=== PATIENT | female | born 1935 | race Caucasian/White ===

== ENCOUNTER 2017-04-17 16:45 | Emergency (ER) | payer MEDICARE, OTHER ==
[~2017-04-17] VITALS: Wt 85.0 kg
[2017-04-17] MEDS ORDERED: SOD CHLORIDE 0.9% 1,000 ML IV STA (17:22)
[2017-04-17] MEDS ORDERED: KETOROLAC 15 MG INJ IV STA (17:22)
[2017-04-17] MEDS ORDERED: ONDANSETRON 4 MG INJ IV STA ×2 (17:22→20:48)
[2017-04-17] MEDS ORDERED: FAMOTIDINE 20 MG TAB PO STA (17:22)
--- NOTE | 2017-04-17 17:57 | ERD ---
ER Documentation Chief Complaint Date/Time DATE: 04/17/17 TIME: 17:55 Chief Complaint ABD PAIN AND N/V X 1 MONTH HPI 81-year-old woman here for nausea and diffuse abdominal pain and cramping 1 month. Patient also complains of nausea. She has had no workup for this but does have a gastroenterology appointment scheduled for tomorrow. She has had no weight loss, no fevers or chills, no vomiting or diarrhea, no complaints of chest pain or shortness of breath. ROS All systems reviewed and are negative except as per history of present illness. Medications Home Meds Active Scripts Ibuprofen* (Motrin*) 400 Mg Tab, 400 MG PO Q8 for PAIN AND/OR INFLAMMATION, #30 TAB Prov:EUGENIE FARAH MD 04/17/17 Allergies Allergies: Coded Allergies: No Known Allergy (Unverified , 04/17/17) PMhx/Soc Smoking Status: Never smoker FmHx Family History: No diabetes Physical Exam Vitals Vital Signs Date Time Temp Pulse Resp B/P Pulse Ox O2 Delivery O2 Flow Rate FiO2 04/17/17 20:23 64 17 160/77 100 Room Air 04/17/17 16:49 98.0 77 18 148/77 99 Physical Exam GENERAL: Well-developed, well-nourished, well-hydrated, in no apparent distress , looks nontoxic in appearance HEENT: Moist mucous membranes, pink conjunctiva, no cervical spine tenderness or step-off deformities, no goiter, no jaundice or icterus, extraocular movements intact without pain. No submandibular induration, and no pharyngeal erythema NEURO: Alert and oriented 3, cranial nerves II through XII intact bilaterally, pupils equal round reactive to light, no focal deficits or facial asymmetry, sensation intact distally Strength 5/5 in upper and lower extremities bilaterally CARDIAC: Regular rate and rhythm, no murmurs rubs or gallops LUNGS: Clear bilaterally no wheezing crackles or stridor ABDOMEN: Soft nontender, no guarding, no rigidity, no rebound, no psoas sign no obturator sign. Normoactive bowel sounds SKIN: Warm and dry to touch, no abrasions, contusions, or hematomas, no lacerations, no ecchymosis, no target lesions, and without ulcers EXTREMITIES: No clubbing cyanosis or edema, calves are bilaterally symmetrical, no Homans sign, no popliteal cord sign. Distal pulses equal and bilateral PSYCH: Normal affect without agitation or irritability Result Diagram: 04/17/17 1800 04/17/17 1800 Results 24 hrs Laboratory Tests Test 04/17/17 18:00 04/17/17 18:05 White Blood Count 7.210^3/ul Red Blood Count 4.8410^6/ul Hemoglobin 13.3g/dl Hematocrit 41.9% Mean Corpuscular Volume 86.6fl Mean Corpuscular Hemoglobin 27.5pg Mean Corpuscular Hemoglobin Concent 31.7g/dl Red Cell Distribution Width 14.4% Platelet Count 21333^3/UL Mean Platelet Volume 9.6fl Neutrophils % 44.8% Lymphocytes % 41.6% Monocytes % 8.4% Eosinophils % 3.8% Basophils % 1.3% Nucleated Red Blood Cells % 0.0/100WBC Neutrophils # 3.210^3/ul Lymphocytes # 3.010^3/ul Monocytes # 0.610^3/ul Eosinophils # 0.310^3/ul Basophils # 0.110^3/ul Nucleated Red Blood Cells # 0.010^3/ul Sodium Level 142mmol/L Potassium Level 3.5mmol/L Chloride Level 108mmol/L Carbon Dioxide Level 25mmol/L Anion Gap 13 Blood Urea Nitrogen 13mg/dl Creatinine 1.15mg/dl Glucose Level 109mg/dl Calcium Level 9.4mg/dl Total Bilirubin 0.4mg/dl Direct Bilirubin 0.00mg/dl Indirect Bilirubin 0.4mg/dl Aspartate Amino Transf (AST/SGOT) 32IU/L Alanine Aminotransferase (ALT/SGPT) 41IU/L Alkaline Phosphatase 65IU/L Troponin I < 0.012ng/ml Total Protein 7.3g/dl Albumin 4.4g/dl Globulin 2.90g/dl Albumin/Globulin Ratio 1.51 Lipase 178U/L Urine Color YELLOW Urine Clarity SLIGHTLY CLOUDY Urine pH 7.0 Urine Specific [place] 1.009 Urine Ketones NEGATIVEmg/dL Urine Nitrite NEGATIVEmg/dL Urine Bilirubin NEGATIVEmg/dL Urine Urobilinogen NEGATIVEmg/dL Urine Leukocyte Esterase NEGATIVELeu/ul Urine Microscopic RBC 0/HPF Urine Microscopic WBC 1/HPF Urine Amorphous Crystals FEW/HPF Urine Hemoglobin NEGATIVEmg/dL Urine Glucose NEGATIVEmg/dL Urine Total Protein NEGATIVEmg/dl Current Medications Medications (Trade) Dose Ordered Sig/[place] Route PRN Reason Start Time Stop Time Status Last Admin Dose Admin Sodium Chloride (NS) 1,000 ml @ 1,000 mls/hr Q1H STAT IV 04/17/17 17:22 04/17/17 18:21 DC 04/17/17 18:02 Ondansetron HCl (Zofran Inj) 4 mg ONCE STAT IV 04/17/17 17:22 04/17/17 17:24 DC 04/17/17 17:58 Famotidine (Pepcid) 40 mg ONCE STAT PO 04/17/17 17:22 04/17/17 17:24 DC 04/17/17 17:58 Ketorolac Tromethamine (Toradol) 15 mg ONCE STAT IV 04/17/17 17:22 04/17/17 17:24 DC 04/17/17 17:58 Ondansetron HCl (Zofran Inj) 4 mg ONCE STAT IV 04/17/17 20:48 04/17/17 20:49 DC 04/17/17 20:53 Procedures/MDM IV line was established patient was placed on clinical research monitor rhythm strip revealed a sinus rhythm at about 70 bpm with upright P and T waves. Patient was afebrile. EKG performed, read by me: 74 bpm, normal sinus rhythm, normal axis, no acute ST segment changes, narrow QRS complex, with good R-wave progression in precordial leads. 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 I do not suspect these are the cause of her symptoms. Her abdominal pain is more anterior colicky, and diffuse. Please refer to radiologist dictation for full report. CBC and electrolytes were normal, liver function tests were normal, troponin was negative. Urine analysis was negative for infection. She was given 1 L normal saline intravenously, Toradol 15 mg IV, Zofran 4 mg IV , and famotidine 40 mg p.o. Vision symptoms did improve. Patient has follow-up appointment with her associate java developer tomorrow at 4 PM. She was given a copy of her CT scan report and lab results. Further management including outpatient prescriptions and imaging studies deferred to her associate java developer. Differential diagnoses considered, included but not limited to acute coronary syndrome, pulmonary embolism, aortic dissection, abdominal aortic aneurysm, sepsis, stroke, meningitis, encephalitis, pneumonia, appendicitis, cholecystitis , bowel obstruction, pyelonephritis, nephrolithiasis, cystitis, as well as metabolic, hematologic, and electrolyte abnormalities. As well as abscess, cellulitis, fractures, and dislocations. Patient feels much better at this time, and vital signs are normal, symptoms have improved. I did give strict instructions to return to the ED if symptoms continue or worsen, patient will otherwise follow-up with primary care physician. Patient understood instructions and agreed to plan. Disclaimer: Inadvertent spelling and grammatical errors are likely due to EHR/ dictation software use and do not reflect on the overall quality of patient care. Also, please note that the electronic time recorded on this note does not necessarily reflect the actual time of the patient encounter. Departure Diagnosis: Primary Impression: Abdominal pain Abdominal location: generalized Qualified Code: R10.84 - Generalized abdominal pain Condition: Good EUGENIE FARAH MD Apr 17, 2017 17:57
[2017-04-17 18:08] LABS: BASOPHIL # 0.1 10^3/ul (0.0-0.1); BASOPHILS % 1.3 % (0.0-2.0); EOSINOPHILS # 0.3 10^3/ul (0.0-0.5); EOSINOPHILS % 3.8 % (0.0-7.0); HEMATOCRIT 41.9 % (37.0-47.0); HEMOGLOBIN 13.3 g/dl (12.0-16.0); LYMPHOCYTES % 41.6 % (15.0-51.0); MEAN CORPUSCULAR HEMOGLOBIN 27.5 pg (29.0-33.0); MEAN CORPUSCULAR HGB CONC 31.7 g/dl (32.0-37.0); MEAN CORPUSCULAR VOLUME 86.6 fl (82.0-101.0); MEAN PLATELET VOLUME 9.6 fl (7.4-10.4); MONOCYTE # 0.6 10^3/ul (0.3-0.9); MONOCYTES % 8.4 % (0.0-11.0); NEUTROPHIL # 3.2 10^3/ul (1.6-7.5); NEUTROPHILS % 44.8 % (39.0-77.0); PLATELET COUNT 266 10^3/UL (140-415); RED BLOOD COUNT 4.84 10^6/ul (4.20-5.40); RED CELL DISTRIBUTION WIDTH 14.4 % (11.5-14.5); WHITE BLOOD COUNT 7.2 10^3/ul (4.8-10.8)
[2017-04-17 18:27] LABS: ADD UMIC NO; UR AMORPHOUS CRYSTAL FEW /HPF (NONE SEEN); UR ASCORBIC ACID NEGATIVE (NEGATIVE); UR BILIRUBIN (Dip) NEGATIVE (NEGATIVE); UR BLOOD (Dip) NEGATIVE (NEGATIVE); UR CLARITY SLIGHTLY CLOUDY (CLEAR); UR COLOR YELLOW (YELLOW); UR GLUCOSE (Dip) NEGATIVE (NEGATIVE); UR KETONES (Dip) NEGATIVE (NEGATIVE); UR LEUKOCYTE ESTERASE (Dip) NEGATIVE Leu/ul (NEGATIVE); UR NITRITE (Dip) NEGATIVE (NEGATIVE); UR RBC 0 /HPF (0-5); UR SPECIFIC GRAVITY (Dip) 1.009 (1.003-1.030); UR TOTAL PROTEIN (Dip) NEGATIVE (NEGATIVE); UR UROBILINOGEN (Dip) NEGATIVE (NEGATIVE)
[2017-04-17 18:32] LABS: ALANINE AMINOTRANSFERASE 41 IU/L (13-69); ALBUMIN 4.4 g/dl (3.3-4.9); ALBUMIN/GLOBULIN RATIO 1.51; ALKALINE PHOSPHATASE 65 IU/L (42-121); ANION GAP 13 (8-16); ASPARTATE AMINO TRANSFERASE 32 IU/L (15-46); BILIRUBIN,INDIRECT 0.4 mg/dl (0-1.1); BILIRUBIN,TOTAL 0.4 mg/dl (0.2-1.3); BLOOD UREA NITROGEN 13 mg/dl (7-20); CALCIUM 9.4 mg/dl (8.4-10.2); CARBON DIOXIDE 25 mmol/L (21-31); CHLORIDE 108 mmol/L (97-110); CREATININE 1.15 mg/dl (0.44-1.00); GLUCOSE 109 mg/dl (70-220); POTASSIUM 3.5 mmol/L (3.5-5.1); SODIUM 142 mmol/L (135-144); TOTAL PROTEIN 7.3 g/dl (6.1-8.1)
[2017-04-17 18:41] LABS: TROPONIN-I < 0.012 ng/ml (0.00-0.12)
[2017-04-17 20:23] VITALS: BP 160/77; PULSE 64; RESP 17
--- NOTE | 2017-04-17 20:24 | RADRPT ---
PROCEDURE: CT ABDOMEN AND PELVIS WITHOUT CONTRAST: CLINICAL INDICATION: 81 years of age, female , abdominal pain. COMPARISON: None TECHNIQUE: CT of the abdomen, and pelvis was performed without intravenous contrast. Oral contrast w as not administered prior to the examination. Coronal and sagittal reformatted images were obtained from the axial source images. Images were revi ewed on a high-resolution PACS workstation. Dose information: Based on a 32 cm phantom, the estimated radiation dose (CTDI vol mGy) for each ser ies in this exam is 13.9 . The estimated cumulative dose (DLP mGy-cm) is 743 . FINDINGS: In the absence of intravenous contrast, the study constitutes a limited assessment of the solid orga ns and vessels. LUNG BASES: Coronary artery calcification. ABDOMEN/PELVIS: Liver: Normal. Gallbladder: Status post cholecystectomy Bile ducts: No intrahepatic or extrahepatic biliary duct dilatation. Spleen: Normal. Pancreas: Normal. Adrenal glands: Normal. Kidneys and ureters: Punctate nonobstructing calculus left kidney. 2.7 cm exophytic hypodensity sup erior pole left kidney likely represents a cyst. Negative for ureteral calculi or hydronephrosis. Right kidney is unremarkable. Aorta and IVC: Atherosclerosis aorta. Negative for abdominal aortic aneurysm. There is a 1.6 cm fus iform aneurysm of the celiac trunk (3/42). Lymph nodes: Normal. Gastrointestinal tract: Colonic diverticulosis without diverticulitis. Bowel loops are decompressed . Appendix: Not identified Bladder: Trace gas in urinary bladder is likely from recent catheterization. Pelvic Organs: The uterus and ovaries are not identified. Peritoneal cavity: No free fluid or free intraperitoneal air. Abdominal wall: Small fat containing abdominal wall hernias at and above the umbilicus. BONES: Musculoskeletal: Degenerative changes in spine and hips with curvature of the lumbar spine convex ri ght No suspicious bone lesions. IMPRESSION: Nonobstructing calculus left kidney. Negative for ureteral calculi or hydronephrosis. Colonic diverticulosis without diverticulitis. 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 Please note the patency of the vasculature canno t be evaluated without intravenous contrast. RPTAT: HCTS August Cardoso Physician Date Time Electronically viewed and signed by August Cardoso, Physician on 04/17/2017 20:24 CS/
[2017-04-17] MEDS ORDERED: IBUP400T22 PO (20:30)
== END 2017-04-17 21:02 | disposition home or self-care (01) ==
LOC: E/R 16:45
DX: R10.84 Generalized abdominal pain (principal); R11.0 Nausea
CPT/HCPCS: 36415; 74176; 80053; 81001; 83690; 84484; 85025; 93005; 96374; 96375; 96376; 99285; J1885; J2405; J7030; 81003

== ENCOUNTER 2018-06-04 01:03 | Observation (INO) | END 2018-06-06 19:44 | disposition home or self-care (01) ==

== ENCOUNTER 2019-02-14 20:58 | Emergency (ER) | payer MEDICARE, OTHER ==
[~2019-02-14] VITALS: Ht 152.4 cm; Wt 81.1 kg
[2019-02-14 21:05] VITALS: Ht 152.4 cm; Wt 81.1 kg
[2019-02-14] MEDS ORDERED: SOD CHLORIDE 0.9% 500 ML IV STA (22:58)
[2019-02-14] MEDS ORDERED: ALBUTEROL 0.083% (NEB) 2.5 MG/3 ML AMP HHN STA (22:58)
[2019-02-14] MEDS ORDERED: IPRATROPIUM (NEB) 0.5 MG/2.5 ML AMP INH ONE (23:00)
--- NOTE | 2019-02-15 | ERD ---
ER Documentation Chief Complaint Chief Complaint ST, COUGH, CONGESTION X'S 3 DAYS. HX PNA HPI 83-year-old female sore throat cough just for 3 days. Consummately productive. No fevers no chills. No nausea no vomiting no other current complaints. No sick contacts. No recent travel. No chest pain. ROS All systems reviewed and are negative except as per history of present illness. Medications Home Meds No Active Prescriptions or Reported Meds Allergies Allergies: Coded Allergies: No Known Allergy (Unverified , 04/17/17) PMhx/Soc History of Surgery: Yes (gallbladder surgery, appendectomy, hysterectomy, abdominal surgery for adhe) Anesthesia Reaction: No Hx Neurological Disorder: No Hx Respiratory Disorders: Yes (asthma) Hx Cardiac Disorders: Yes (atrial fibrillation, s/p ablation - a few days ago) Hx Psychiatric Problems: No Hx Miscellaneous Medical Probl: Yes (hypercholesterolemia) Hx Alcohol Use: No Hx Substance Use: No Hx Tobacco Use: No Smoking Status: Never smoker Physical Exam Vitals Vital Signs Date Temp Pulse Resp B/P (MAP) Pulse Ox O2 O2 Flow FiO2 Time Delivery Rate 02/14/19 89 22 152/84 100 Room Air 23:20 (106) 02/14/19 66 16 98 21 23:19 02/14/19 100.1 74 20 164/74 94 21:05 (104) Physical Exam Const: No acute distress Head: Atraumatic Eyes: Normal Conjunctiva ENT: Normal External Ears, Nose and Mouth. Neck: Full range of motion. No meningismus. Resp: Crackles in both lung bases Cardio: Regular rate and rhythm, no murmurs Abd: Soft, non tender, non distended. Normal bowel sounds Skin: No petechiae or rashes Back: No midline or flank tenderness Ext: No cyanosis, or edema Neur: Awake and alert Psych: Normal Mood and Affect Result Diagram: 02/14/19224902/14/192249 Results 24 hrs Laboratory Tests Test 02/14/19 22:50 02/14/19 23:08 White Blood Count 9.1 10^3/ul Red Blood Count 4.44 10^6/ul Hemoglobin 12.5 g/dl Hematocrit 38.8 % Mean Corpuscular Volume 87.4 fl Mean Corpuscular Hemoglobin 28.2 pg Mean Corpuscular Hemoglobin Concent 32.2 g/dl Red Cell Distribution Width 14.2 % Platelet Count 295 10^3/UL Mean Platelet Volume 9.4 fl Immature Granulocytes % 0.300 % Neutrophils % 68.9 % Lymphocytes % 19.3 % Monocytes % 8.5 % Eosinophils % 2.1 % Basophils % 0.9 % Nucleated Red Blood Cells % 0.0 /100WBC Immature Granulocytes # 0.030 10^3/ul Neutrophils # 6.3 10^3/ul Lymphocytes # 1.8 10^3/ul Monocytes # 0.8 10^3/ul Eosinophils # 0.2 10^3/ul Basophils # 0.1 10^3/ul Nucleated Red Blood Cells # 0.0 10^3/ul Sodium Level 142 mmol/L Potassium Level 4.4 mmol/L Chloride Level 111 mmol/L Carbon Dioxide Level 22 mmol/L Anion Gap 9 Blood Urea Nitrogen 9 mg/dl Creatinine 1.01 mg/dl Est Glomerular Filtrat Rate mL/min mL/min Glucose Level 125 mg/dl Calcium Level 9.1 mg/dl Total Bilirubin 0.7 mg/dl Direct Bilirubin 0.00 mg/dl Indirect Bilirubin 0.7 mg/dl Aspartate Amino Transf (AST/SGOT) 34 IU/L Alanine Aminotransferase (ALT/SGPT) 13 IU/L Alkaline Phosphatase 87 IU/L Troponin I < 0.012 ng/ml B-Type Natriuretic Peptide 203 PG/ML Total Protein 7.7 g/dl Albumin 4.4 g/dl Globulin 3.30 g/dl Albumin/Globulin Ratio 1.33 POC Venous Lactate 0.8 mmol/L Current Medications Medications Dose Sig/Corby Start Time Status Last (Trade) Ordered Route PRN Stop Time Admin Dose Reason Admin Sodium 500 ml @ Q1H STAT 02/14/19 02/14/19 Chloride 500 mls/hr IV 22:58 23:02 02/14/19 23:57 Albuterol 5 mg ONCE STAT 02/14/19 DC 02/14/19 (Proventil HHN 22:58 23:19 0.083% (Neb)) 02/14/19 22:59 Ipratropium 0.5 mg ONCE ONCE 02/14/19 DC 02/14/19 [place] [facility] 23:00 23:19 (Atrovent 02/14/19 23:01 0.02% (Neb)) Procedures/MDM EKG: Rate/Rhythm: [Normal Sinus Rhythm] QRS, ST, T-waves: [No changes consistent w/ acute ischemia] Impression: [No evidence of ischemia or arrhythmia] Chest X-ray 1V Interpreted by me: Soft Tissue: No acute abnormalities Bones: No acute abnormalities Mediastinum/Cardiac Silhouette/Lungs: [No acute abnormalities] Medical decision making: Patient's respiratory status has stabilized while in the department and is appropriate for outpatient work up. Exam and work up not consistent w/ impending respiratory failure or cardiovascular collapse. Departure Diagnosis: Primary Impression: Bronchitis Condition: Stable SHANICE MILLER Feb 15, 2019 00:00
[2019-02-15] MEDS ORDERED: AZIT250T PO (00:01)
[2019-02-15] MEDS ORDERED: PRED20TA PO (00:01)
[2019-02-15] MEDS ORDERED: ALBU18HF INHALATION (00:01)
[2019-02-15 00:41] VITALS: BP 142/75; PULSE 76; RESP 23
== END 2019-02-15 00:44 | disposition home or self-care (01) ==
LOC: E/R 20:58
DX: J40 Bronchitis, not specified as acute or chronic (principal)
CPT/HCPCS: 36415; 71045; 80053; 83605; 83880; 84484; 85025; 87040; 94664; 99284; J7040

== ENCOUNTER 2019-02-24 16:27 | Emergency (ER) | payer MEDICARE, OTHER ==
[~2019-02-24] VITALS: Ht 152.4 cm; Wt 81.0 kg
[~2019-02-24 16:27] MED LIST: ALBU18HF INHALATION; AZIT250T PO; PRED20TA PO
[2019-02-24 16:29] VITALS: Ht 152.4 cm; Wt 81.0 kg
--- NOTE | 2019-02-24 17:37 | ERD ---
ER Documentation Chief Complaint Chief Complaint COUGH , CHEST CONGESTION , SOB X 8 DAYS HPI This is a 83-year-old woman brought in by EMS for complaints of continued shortness of breath, cough, and chest congestion. She has been using albuterol pump at home without much relief and daughter who is at the bedside feels that she needs an albuterol nebulizer machine. She has had no fevers or chills, no complaints of wheezing, no chest pain, no loss of consciousness, no headache or blurry vision. Patient does have an appointment with her PMD next week. Patient has chronic peripheral edema and suffers from chronic orthopnea and exertional dyspnea. She was diagnosed with bronchitis last week and completed her course of azithromycin and continues to use her albuterol pump almost daily. ROS All systems reviewed and are negative except as per history of present illness. Medications Home Meds Active Scripts Mupirocin* (Bactroban*) 2% -22 Gram Oint...g., 1 APPLIC TOP BID for 14 Days, EA Prov:EUGENIE FARAH MD 02/24/19 Albuterol Sulfate* (Proair HFA*) 8.5 Gm Hfa.aer.ad, 2 PUFF INH Q6H PRN for WHEEZING AND SOB, #1 INHALER Prov:EUGENIE FARAH MD 02/24/19 Albuterol Sulfate* (Ventolin HFA*) 18 Gm Hfa.aer.ad, 2 PUFF INHALATION Q4H, #1 INHALER Prov:SHANICE MILLER 02/15/19 Prednisone* (Prednisone*) 20 Mg Tab, 40 MG PO DAILY for 4 Days, TAB Prov:SHANICE MILLER 02/15/19 Azithromycin* (Zithromax*) 250 Mg Tablet, 250 MG PO .ZPACK DIRECTED, #6 TAB TAKE 500 MG (2 TABS) THE FIRST DAY THEN 250 MG (1 TAB) DAYS 2-5 Prov:SHANICE MILLER 02/15/19 Allergies Allergies: Coded Allergies: No Known Allergy (Unverified , 04/17/17) PMhx/Soc Obesity, dementia, dementia, multifocal atrial tachycardia, atrial fibrillation status post ablation, CAD status post PCI, recent bronchitis treated with azithromycin as an outpatient History of Surgery: Yes (gallbladder surgery, appendectomy, hysterectomy, abdominal surgery for adhe) Anesthesia Reaction: No Hx Neurological Disorder: No Hx Respiratory Disorders: Yes (asthma) Hx Cardiac Disorders: Yes (atrial fibrillation, s/p ablation - a few days ago) Hx Psychiatric Problems: No Hx Miscellaneous Medical Probl: Yes (hypercholesterolemia) Hx Alcohol Use: No Hx Substance Use: No Hx Tobacco Use: No Smoking Status: Never smoker Physical Exam Vitals Vital Signs Date Temp Pulse Resp B/P (MAP) Pulse Ox O2 O2 Flow FiO2 Time Delivery Rate 02/24/19 52 18 149/62 100 Room Air 20:21 (91) 02/24/19 51 15 150/73 99 Room Air 18:09 (98) 02/24/19 98.8 58 18 156/70 95 16:29 (98) Physical Exam GENERAL: Well-developed, well-nourished, appears dehydrated, dyspneic, afebrile HEENT: Dry mucous membranes, pink conjunctiva, no cervical spine tenderness or step-off deformities, no goiter, no jaundice or icterus, extraocular movements intact without pain. NEURO: Alert and oriented 3, able to answer simple questions and follow simple commands, no focal deficits or facial asymmetry, pupils equal round reactive to light CARDIAC: Bradycardic and regular, no murmurs rubs or gallops LUNGS: Clear bilaterally no wheezing crackles or stridor ABDOMEN: Soft nontender, no guarding, no rigidity, no rebound, no psoas sign no obturator sign. SKIN: Warm and dry to touch, no abrasions, contusions, or hematomas, no lacerations, no ecchymosis, no target lesions, and without ulcers EXTREMITIES: No clubbing cyanosis, 3+ pitting edema in the lower extremities bilaterally with chronic skin erythema, stasis dermatitis, calves symmetrical PSYCH: Normal affect without agitation or irritability Result Diagram: 02/24/19184402/24/191844 Results 24 hrs Laboratory Tests Test 02/24/19 18:45 02/24/19 19:01 White Blood Count 9.0 10^3/ul Red Blood Count 4.52 10^6/ul Hemoglobin 12.7 g/dl Hematocrit 39.5 % Mean Corpuscular Volume 87.4 fl Mean Corpuscular Hemoglobin 28.1 pg Mean Corpuscular Hemoglobin Concent 32.2 g/dl Red Cell Distribution Width 14.6 % Platelet Count 297 10^3/UL Mean Platelet Volume 8.8 fl Immature Granulocytes % 0.600 % Neutrophils % 65.6 % Lymphocytes % 23.5 % Monocytes % 7.7 % Eosinophils % 1.8 % Basophils % 0.8 % Nucleated Red Blood Cells % 0.0 /100WBC Immature Granulocytes # 0.050 10^3/ul Neutrophils # 5.9 10^3/ul Lymphocytes # 2.1 10^3/ul Monocytes # 0.7 10^3/ul Eosinophils # 0.2 10^3/ul Basophils # 0.1 10^3/ul Nucleated Red Blood Cells # 0.0 10^3/ul Sodium Level 145 mmol/L Potassium Level 3.4 mmol/L Chloride Level 110 mmol/L Carbon Dioxide Level 27 mmol/L Anion Gap 8 Blood Urea Nitrogen 13 mg/dl Creatinine 1.04 mg/dl Est Glomerular Filtrat Rate mL/min mL/min Glucose Level 115 mg/dl Calcium Level 9.0 mg/dl Total Bilirubin 0.4 mg/dl Direct Bilirubin 0.00 mg/dl Indirect Bilirubin 0.4 mg/dl Aspartate Amino Transf (AST/SGOT) 18 IU/L Alanine Aminotransferase (ALT/SGPT) 22 IU/L Alkaline Phosphatase 69 IU/L Troponin I < 0.012 ng/ml B-Type Natriuretic Peptide 133 PG/ML Total Protein 7.1 g/dl Albumin 4.0 g/dl Globulin 3.10 g/dl Albumin/Globulin Ratio 1.29 Lipase 221 U/L Blood Gas Specimen Source Blood arterial Arterial Blood Date Drawn 02/24/2019 7:30:30 PM Arterial Blood pH (Temp corrected) 7.404 Arterial Blood pCO2 (Temp correct) 39.0 mmhg Arterial Blood pO2 (Temp corrected) 112.3 mmHG Arterial Blood HCO3 23.8 mmol/L Arterial Blood Base Excess -0.7 mmol/L Arterial Blood Oxygen Saturation 98.0 mmHG Buck Test N/A Arterial Blood Gas Puncture Site Right Brachial Arterial Blood Carboxyhemoglobin 0.1 % Arterial Blood Methemoglobin 0.3 % Blood Gas A-a O2 Differential 34.1 mmHg Oxyhemoglobin Percent 97.6 % Blood Gas Temperature 37.0 C Blood Gas Modality NASAL CANNULA FiO2 27.0 % Blood Gas Notified Whom KM Blood Gas Notified Time 02/24/2019 7:36:06 PM Current Medications Medications Dose Sig/Corby Start Time Status Last (Trade) Ordered Route PRN Stop Time Admin Dose Reason Admin Sodium 500 ml @ Q1H STAT 02/24/19 DC 02/24/19 Chloride 500 mls/hr IV 19:42 20:38 02/24/19 20:41 Procedures/MDM IV line was established patient was placed on playground monitor rhythm strip revealed a sinus rhythm at about 60 bpm with upright P and T waves. Patient was afebrile EKG performed, read by me revealed a sinus bradycardia 55 bpm, normal axis, narrow QRS complex, no concerning ST elevations or depressions noted Chest X-ray 1V Interpreted by me: Soft Tissue: No acute abnormalities Bones: No acute abnormalities Mediastinum/Cardiac Silhouette/Lungs: No acute abnormalities I administered 500 cc normal saline IV for dehydration. CBC and electrolytes are normal, liver function tests were normal, troponin was negative, BNP was low. ABG was normal with a PCO2 of 39. CTA of the chest was performed, IMPRESSION: No acute air space infiltrates or suspicious pulmonary nodules. No pulmonary emboli. Patient's vital signs are normal at this time and she has been rehydrated, her oxygen saturation on room air is 100% and her pulmonary exam was repeated by me prior to discharge and remains clear, she has no wheezing crackles or stridor. I will refill her albuterol pump and recommended follow-up with PMD for possible pulmonology consultation. Patient also has chronic stasis dermatitis and I prescribed mupirocin 2% antibiotic ointment as prophylactic therapy. I do not suspect cellulitis of the lower extremities at this time although she is at risk for developing lower extremity cellulitis. Differential diagnoses considered, included but not limited to acute coronary syndrome, pulmonary embolism, aortic dissection, abdominal aortic aneurysm, sepsis, stroke, meningitis, encephalitis, pneumonia, appendicitis, cholecystitis, bowel obstruction, pyelonephritis, nephrolithiasis, cystitis, as well as metabolic, hematologic, and electrolyte abnormalities. As well as abscess, cellulitis, fractures, and dislocations. Patient feels much better at this time, and vital signs are normal, symptoms have improved. I did give strict instructions to return to the ED if symptoms continue or worsen, patient will otherwise follow-up with primary care physician. Patient understood instructions and agreed to plan. Disclaimer: Inadvertent spelling and grammatical errors are likely due to EHR/dictation software use and do not reflect on the overall quality of patient care. Also, please note that the electronic time recorded on this note does not necessarily reflect the actual time of the patient encounter. Departure Diagnosis: Primary Impression: Shortness of breath Additional Impressions: Peripheral edema Stasis dermatitis Laterality: bilateral Qualified Codes: I87.2 - Venous insufficiency (chronic) (peripheral) Condition: Good EUGENIE FARAH MD Feb 24, 2019 17:37
[2019-02-24] MEDS ORDERED: SOD CHLORIDE 0.9% 500 ML IV STA (19:42)
[2019-02-24] MEDS ORDERED: MUPI22OI2 TOP (20:56)
[2019-02-24] MEDS ORDERED: ALBU8.5H8 INH (20:56)
[2019-02-24] MEDS ORDERED: ALBU2.5V3 NEB (21:31)
[2019-02-24 21:38] VITALS: BP 137/81; PULSE 54; RESP 18
== END 2019-02-24 21:38 | disposition home or self-care (01) ==
LOC: E/R 16:27
DX: I87.2 Venous insufficiency (chronic) (peripheral) (principal); I25.10 Atherosclerotic heart disease of native coronary artery without angina pectoris; J45.901 Unspecified asthma with (acute) exacerbation; E66.9 Obesity, unspecified; Z68.34 Body mass index [BMI] 34.0-34.9, adult
CPT/HCPCS: 36600; 71045; 71275; 80053; 82803; 83690; 83880; 84484; 85025; 93005; J7040; 36415; 96360

== ENCOUNTER 2019-03-19 20:40 | Emergency (ER) | payer MEDICARE, OTHER ==
[~2019-03-19] VITALS: Ht 152.4 cm; Wt 80.0 kg
[~2019-03-19 20:40] MED LIST changes: +ALBU2.5V3 NEB; +ALBU8.5H8 INH; +MUPI22OI2 TOP
[2019-03-19 20:50] VITALS: Ht 152.4 cm; Wt 80.0 kg
[2019-03-19] MEDS ORDERED: ACETAMINOPHEN 325 MG TAB PO ONE (22:30)
--- NOTE | 2019-03-19 22:31 | ERD ---
ER Documentation Chief Complaint Chief Complaint RECENT EPISTAXIS SEEN AND TREATED AT [facility]. STARTED AGAIN TODAY HPI Is 83-year-old female with a recent epistaxis seen and treated at [facility]. He said no nosebleed started again today. No fevers no chills no nausea no vomiting. No other current complaints. Patient does take 81 mg of aspirin daily but no other blood thinners. Denies trauma. ROS All systems reviewed and are negative except as per history of present illness. Medications Home Meds Active Scripts Albuterol Sulfate* (Albuterol Sulfate* Neb) 0.083%-3 Ml Neb, 2.5 MG NEB Q4 PRN for SHORTNESS OF BREATH, #1 BOX Prov:EUGENIE FARAH MD 02/24/19 Mupirocin* (Bactroban*) 2% -22 Gram Oint...g., 1 APPLIC TOP BID for 14 Days, EA Prov:EUGENIE FARAH MD 02/24/19 Albuterol Sulfate* (Proair HFA*) 8.5 Gm Hfa.aer.ad, 2 PUFF INH Q6H PRN for WHEEZING AND SOB, #1 INHALER Prov:EUGENIE FARAH MD 02/24/19 Albuterol Sulfate* (Ventolin HFA*) 18 Gm Hfa.aer.ad, 2 PUFF INHALATION Q4H, #1 INHALER Prov:SHANICE MILLER 02/15/19 Prednisone* (Prednisone*) 20 Mg Tab, 40 MG PO DAILY for 4 Days, TAB Prov:SHANICE MILLER 02/15/19 Azithromycin* (Zithromax*) 250 Mg Tablet, 250 MG PO .YaakovPACK DIRECTED, #6 TAB TAKE 500 MG (2 TABS) THE FIRST DAY THEN 250 MG (1 TAB) DAYS 2-5 Prov:SHANICE MILLER 02/15/19 Allergies Allergies: Coded Allergies: No Known Allergy (Unverified , 04/17/17) PMhx/Soc History of Surgery: Yes (gallbladder surgery, appendectomy, hysterectomy, abdominal surgery for adhe) Anesthesia Reaction: No Hx Neurological Disorder: No Hx Respiratory Disorders: Yes (asthma) Hx Cardiac Disorders: Yes (atrial fibrillation, s/p ablation - a few days ago) Hx Psychiatric Problems: No Hx Miscellaneous Medical Probl: Yes (hypercholesterolemia) Hx Alcohol Use: No Hx Substance Use: No Hx Tobacco Use: No Smoking Status: Never smoker Physical Exam Vitals Vital Signs Date Temp Pulse Resp B/P (MAP) Pulse Ox O2 O2 Flow FiO2 Time Delivery Rate 03/19/19 98.8 71 18 145/77 94 20:50 (99) Physical Exam Const: No acute distress Head: Atraumatic Eyes: Normal Conjunctiva ENT: Normal External Ears, Nose and Mouth. Neck: Full range of motion. No meningismus. Resp: Clear to auscultation bilaterally Cardio: Regular rate and rhythm, no murmurs Abd: Soft, non tender, non distended. Normal bowel sounds Skin: No petechiae or rashes Back: No midline or flank tenderness Ext: No cyanosis, or edema Neur: Awake and alert Psych: Normal Mood and Affect Result Diagram: 03/19/192152 Results 24 hrs Laboratory Tests Test 03/19/19 21:53 White Blood Count 7.0 10^3/ul Red Blood Count 4.00 10^6/ul Hemoglobin 11.4 g/dl Hematocrit 34.6 % Mean Corpuscular Volume 86.5 fl Mean Corpuscular Hemoglobin 28.5 pg Mean Corpuscular Hemoglobin Concent 32.9 g/dl Red Cell Distribution Width 14.7 % Platelet Count 336 10^3/UL Mean Platelet Volume 9.0 fl Immature Granulocytes % 0.300 % Neutrophils % 64.8 % Lymphocytes % 24.0 % Monocytes % 7.3 % Eosinophils % 2.3 % Basophils % 1.3 % Nucleated Red Blood Cells % 0.0 /100WBC Immature Granulocytes # 0.020 10^3/ul Neutrophils # 4.6 10^3/ul Lymphocytes # 1.7 10^3/ul Monocytes # 0.5 10^3/ul Eosinophils # 0.2 10^3/ul Basophils # 0.1 10^3/ul Nucleated Red Blood Cells # 0.0 10^3/ul Current Medications Medications Dose Sig/[place] Start Time Status Last (Trade) Ordered Route PRN Stop Time Admin Dose Reason Admin 650 mg ONCE ONCE 03/19/19 03/19/19 Acetaminophen PO 22:30 22:16 (Tylenol 03/19/19 22:31 Tab) Procedures/MDM Medical decision making: This very pleasant patient has some mild epistaxis. It is since resolved. Nasal packing is in place. She has follow-up in 36 hours with ENT. She is to follow-up with ENT. Return for worsening symptoms. Departure Diagnosis: Primary Impression: Epistaxis Condition: Stable Patient Instructions: Epistaxis (Adult) Referrals: SMITH ANTHONY MD (PCP) SHANICE MILLER Mar 19, 2019 22:31
[2019-03-19 22:57] VITALS: BP 143/74; PULSE 55; RESP 19
== END 2019-03-19 23:01 | disposition home or self-care (01) ==
LOC: E/R 20:40
DX: R04.0 Epistaxis (principal)
CPT/HCPCS: 85025

== ENCOUNTER 2019-07-10 23:31 | Emergency (ER) | payer MEDICARE, OTHER ==
[~2019-07-10] VITALS: Ht 157.5 cm; Wt 79.0 kg
[~2019-07-10 23:31] MED LIST changes: +DICL100G37 TOP
[2019-07-10 23:35] VITALS: Ht 157.5 cm; Wt 79.0 kg
[2019-07-11] MEDS ORDERED: SOD CHLORIDE 0.9% 500 ML IV STA (00:12)
[2019-07-11] MEDS ORDERED: KETOROLAC 15 MG INJ IV STA (00:12)
[2019-07-11] MEDS ORDERED: ALPRAZOLAM 0.25 MG TAB PO ONE (00:30)
[2019-07-11 01:50] VITALS: BP 153/80; PULSE 53; RESP 12
== END 2019-07-11 01:53 | disposition home or self-care (01) ==
LOC: E/R 23:31
DX: R07.9 Chest pain, unspecified (principal); J45.909 Unspecified asthma, uncomplicated; I25.10 Atherosclerotic heart disease of native coronary artery without angina pectoris; M54.12 Radiculopathy, cervical region; E66.9 Obesity, unspecified; E03.9 Hypothyroidism, unspecified; Z68.31 Body mass index [BMI] 31.0-31.9, adult
CPT/HCPCS: 71045; 80053; 83690; 84484; 85025; 93005; 96374; 99284; J1885; J7040